=== PATIENT | male | born 1990 | race Caucasian/White ===

== ENCOUNTER 2017-03-23 11:35 | Outpatient (CLI) | payer MEDICARE ==
[2016-01-06 16:15] VITALS: BP 106/68
--- NOTE | 2017-03-23 15:43 | Diagnostic Imaging Report ---
OSWALDO NUÑEZ [facility] [address] [facility] [address] [address] Report Submission Date: Mar 23, 2017 1:10:56 PM CDT Patient Study Name: BYRON LEAL Date: Mar 23, 2017 11:41:24 AM CDT Modality Type: CR Gender: M Description: LOWER EXTREMITY : 89 Institution: [facility] Physician: OSWALDO NUÑEZ Examination: Plain film knee History: Knee discomfort Findings: 2 views of the knee demonstrates normal cortical margins. No fracture. No dislocation. No joint effusion. No soft tissue irregularity. Impression: No osseous abnormality Electronically signed on Mar 23, 2017 1:10:56 PM CDT by: Garth WATSON
== END 2017-03-23 13:57 ==
LOC: RAD 11:35
PROVIDERS: ATTEND Physician Assistant
DX: M25.562 Pain in left knee (principal)
CPT/HCPCS: 73560